=== PATIENT | female | born 1965 | race Caucasian/White ===

== ENCOUNTER 2017-02-05 18:19 | Emergency (ER) | payer MEDICARE, MEDICAID ==
--- NOTE | 2017-02-06 01:26 | ER ---
ADMIT: 02/05/2017 RM/LOC: ER [facility] MR#: [id number] [address] [id number] JOSE AUSTIN [address] [place] [address] Emergency Room Report SEX: F AGE: 51 : 1965 DATE: 02/05/2017 TIME: 1819 hours. Please refer to my T-sheet for complete H and P. Briefly, the patient is a 51-year-old, who was actually seen originally by ABI Freeman for this atypical chest pain. It has been on and off for 3 days. Nothing makes it worse. Comes in for evaluation. PHYSICAL EXAMINATION: VITAL SIGNS: Here, I did evaluate her also. Her sats are 94%, blood pressure 110/42, pulse 97, respirations 26, temperature 97.8. GENERAL: In no acute distress. HEENT: Grossly normal. LUNGS: Slightly coarse. ABDOMEN: Soft. EXTREMITIES: She has trace edema. EMERGENCY ROOM COURSE: Chest CT revealed no PE. Cardiac enzymes were negative. CBC normal except white count 15. Chemistries normal. Troponin negative. EKG is sinus rhythm at 87, no changes. I had a long discussion, talked to Dr. Mc. We gave her a DuoNeb and Zithromax 500 mg p.o. and prednisone 20 mg p.o. It was atypical, but I am concerned about her chest discomfort. She looks much better. I am going to have her follow up with Dr. Mc. I have talked to him. ASSESSMENT: 1. Atypical chest pain. 2. Nicotine abuse. 3. Diabetes. 4. Bronchitis. PLAN: Z-Sonu. Return if worse. Prednisone x5 days. Follow up with Dr. Mc. Jordan Cain MD/ ramiro JOB #: [id number] CC: João Lopez MD, Attending Physician Jose Daniel Mc MD, Family Physician
== END 2017-02-05 22:40 | disposition home or self-care (01) ==
LOC: ER 18:19
DX: R07.89 Other chest pain (principal); E11.9 Type 2 diabetes mellitus without complications; J40 Bronchitis, not specified as acute or chronic; F17.210 Nicotine dependence, cigarettes, uncomplicated; I10 Essential (primary) hypertension; J45.909 Unspecified asthma, uncomplicated; E78.00 Pure hypercholesterolemia, unspecified; Z79.899 Other long term (current) drug therapy; Z88.8 Allergy status to other drugs, medicaments and biological substances

== ENCOUNTER → 2017-02-19 | Outpatient (CLI) | payer MEDICARE, MEDICAID | END | disposition home or self-care (01) | LOC: EDT 13:30 | DX: E11.9 Type 2 diabetes mellitus without complications (principal); E66.9 Obesity, unspecified; Z71.3 Dietary counseling and surveillance ==